=== PATIENT | male | born 1960 | race Caucasian/White ===

== ENCOUNTER 2019-08-25 10:04 | Emergency (ER) | payer OTHER ==
[2019-08-25] MEDS ORDERED: DIPH,PERTUS(ACELL)TETVAC-LF 0.5 ML VIAL IM ONE (10:06)
[2019-08-25 10:18] LABS: Glucose,Whole Blood 143 mg/dL (75-99)
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
[2019-08-25] MEDS ORDERED: HYDROmorphone 0.5 MG/0.5 ML SYRINGE IVP STA ×3 (10:24→11:24)
[2019-08-25 10:26] LABS: Basophils # (A) 0.1 k/uL (0-0.2); Basophils % (A) 1 %; Eosinophils # (A) 0.2 k/uL (0-0.7); Eosinophils % (A) 3 %; HCT 44.6 % (39.0-53.0); HGB 14.5 gm/dL (13.0-17.5); Lymphocytes # (A) 3.8 k/uL (1.0-4.8); Lymphocytes % (A) 40 %; MCH 29.5 pg (25.0-35.0); MCHC 32.6 g/dL (31.0-37.0); MCV 90.6 fL (80.0-100.0); Mean Platelet Volume 7.9; Monocytes # (A) 0.6 k/uL (0-1.0); Monocytes % (A) 7 %; Neutrophils # (A) 4.4 k/uL (1.3-7.7); Neutrophils % (A) 47 %; Platelet Count 258 k/uL (150-450); RBC 4.92 m/uL (4.30-5.90); RDW 12.7 % (11.5-15.5); WBC 9.6 k/uL (3.8-10.6)
[2019-08-25 10:36] LABS: ALT 35 U/L (4-49); AST 40 U/L (17-59); African American GFR (CKD) 81 (>60 ml/min/1.73 sqM); Albumin 4.2 g/dL (3.5-5.0); Alcohol <10 mg/dL; Alkaline Phosphatase 52 U/L (38-126); Amylase 32 U/L (30-110); Anion Gap 8 mmol/L; Blood Urea Nitrogen 29 mg/dL (9-20); Carbon Dioxide 22 mmol/L (22-30); Chloride 109 mmol/L (98-107); Glucose 143 mg/dL (74-99); Non-African American GFR(CKD) 70 (>60 ml/min/1.73 sqM); Potassium 3.7 mmol/L (3.5-5.1); Sodium 139 mmol/L (137-145); Total Bilirubin 0.7 mg/dL (0.2-1.3)
--- NOTE | 2019-08-25 10:36 | XR ---
EXAMINATION TYPE: XR chest 1V portable DATE OF EXAM: 08/25/2019 COMPARISON: NONE HISTORY: Trauma and pain TECHNIQUE: Single frontal view of the chest is obtained. FINDINGS: There is no focal air space opacity, pleural effusion, or pneumothorax seen. The cardiac silhouette size is within normal limits. The osseous structures are intact. There are overlying anu ds. IMPRESSION: No acute process.
--- NOTE | 2019-08-25 10:39 | XR ---
AP pelvis HISTORY: Trauma and pain frontal view of the pelvis on 2 images Bone mineralization, joint spaces and alignment are maintained. IMPRESSION: No fracture or dislocation.
[2019-08-25 10:42] LABS: Prothrombin Time 10.3 sec (9.0-12.0)
[2019-08-25 10:43] LABS: Partial Thromboplastin Time 20.8 sec (22.0-30.0)
[2019-08-25 10:44] VITALS: BP 144/85; PULSE 76; RESP 16; TEMP 97.9
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
[2019-08-25] MEDS ORDERED: SODIUM CHLORIDE 0.9% 1,000 ML IV ONE (10:52)
[2019-08-25 11:03] LABS: Creatine Kinase 149 U/L (55-170)
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
[2019-08-25 11:16] LABS: Creatine Kinase MB 1.1 ng/mL (0.0-2.4); Troponin I <0.012 ng/mL (0.000-0.034)
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
[2019-08-25 11:23] LABS: Appearance,Urine Clear (Clear); Bacteria,Urine Rare /hpf; Bilirubin,Urine Negative (Negative); Blood,Urine Moderate (Negative); Color,Urine Light Yellow; Glucose,Urine (UA) Negative (Negative); Ketones,Urine Negative (Negative); Leukocyte Esterase,Urine Negative (Negative); Nitrite,Urine Negative (Negative); PH, Urine 5.5 (5.0-8.0); Protein,Urine 1+ (Negative); RBC,Urine 104 /hpf (0-5); Urobilinogen,Urine <2.0 mg/dL (<2.0); WBC,Urine 5 /hpf (0-5)
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
[2019-08-25 11:36] LABS: Amphetamine Screen,Urine Not Detected (NotDetected); Barbiturate Screen,Urine Not Detected (NotDetected); Benzodiazepines Screen,Urine Not Detected (NotDetected); Cocaine Screen,Urine Not Detected (NotDetected); Methadone Screen, Urine Not Detected (NotDetected); Opiate Screen,Urine Not Detected (NotDetected); Oxycodone Screen, Urine Not Detected (NotDetected); Phencyclidine Screen,Urine Not Detected (NotDetected); Tricyclic Antidepressant,Urine Not Detected (NotDetected); Urn Cannabinoid Scrn Not Detected (NotDetected)
--- NOTE | 2019-08-25 11:47 | XR ---
Left leg HISTORY: Trauma, fracture Frontal lateral views of the left leg Correlation to left ankle same date The previously identified comminuted displaced fibular fracture is again noted. Tibial plateau fractu re is also present with depression of the lateral tibia, comminuted intra-articular appearance is pre sent. There is soft tissue swelling. IMPRESSION: Tibial plateau fractures, fibular fractures
[2019-08-25] MEDS ORDERED: ONDANSETRON 4 MG/2 ML VIAL IVP STA (11:54)
[2019-08-25] MEDS ORDERED: HYDROmorphone 0.5 MG/0.5 ML SYRINGE IM STA (11:54)
== END 2019-08-25 12:11 | disposition other institution (70) ==
LOC: EC 10:04
DX: S92.312A Displaced fracture of first metatarsal bone, left foot, initial encounter for closed fracture (principal); S92.412A Displaced fracture of proximal phalanx of left great toe, initial encounter for closed fracture; S92.422A Displaced fracture of distal phalanx of left great toe, initial encounter for closed fracture; S92.312B Displaced fracture of first metatarsal bone, left foot, initial encounter for open fracture; S82.142A Displaced bicondylar fracture of left tibia, initial encounter for closed fracture; S82.492A Other fracture of shaft of left fibula, initial encounter for closed fracture; S22.41XA Multiple fractures of ribs, right side, initial encounter for closed fracture; S30.811A Abrasion of abdominal wall, initial encounter; S00.01XA Abrasion of scalp, initial encounter; K21.9 Gastro-esophageal reflux disease without esophagitis; Z23 Encounter for immunization; Z79.899 Other long term (current) drug therapy; Z98.890 Other specified postprocedural states; V23.4XXA Motorcycle driver injured in collision with car, pick-up truck or van in traffic accident, initial encounter; Y92.410 Unspecified street and highway as the place of occurrence of the external cause; Y93.55 Activity, bike riding
CPT/HCPCS: 36415; 93005; 86900; 86901; 80053; 82150; 82550; 82553; 83605; 83690; 84484; 85025; 85610; 85730; 86850; 81001; 80306; 80320; 72170; 73590; 73600; 73620; 71045; 72125; 70450; 71260; 74177; 90715; 99291; 96365; 90471; 96375 ×2; 96376; 96372; J2405; J0690; J1170; Q9967

== ENCOUNTER → 2019-12-23 | Outpatient (CLI) | payer OTHER ==
--- NOTE | 2019-12-23 12:00 | CT ---
EXAMINATION TYPE: CT knee LT wo con DATE OF EXAM: 12/23/2019 COMPARISON: Plain film 08/25/2019 HISTORY: Fracture of tibia or fibula CT DLP: 410 mGycm Automated exposure control for dose reduction was used. Helical imaging through the left knee. Perez l and sagittal reconstructions. FINDINGS: Postop changes are noted to the proximal tibia. Multiple screws are noted, there is some metallic art ifact present. Side plate is present along the proximal tibia laterally, fracture lines across the ti bial plateau are present medial and lateral to the tibial condyles, complex fracture present extendin g anterior to posterior as well as angled laterally through the proximal tibia. There is near-anatomi c alignment, some periosteal new bone formation may be present along the proximal tibia deep to the s aidan plate, there is some bone sclerosis laterally. There is no dislocation. There is a small joint effusion present about the knee. Postop changes are noted to the distal fibula. IMPRESSION: POSTOP CHANGES FOR TIBIAL PLATEAU FRACTURE DESCRIBED
== END | disposition home or self-care (01) ==
LOC: RADCTMAIN 07:04
PROVIDERS: ATTEND Orthopaedic Surgery Orthopaedic Trauma
DX: M96.672 Fracture of tibia or fibula following insertion of orthopedic implant, joint prosthesis, or bone plate, left leg (principal); Z98.890 Other specified postprocedural states

== ENCOUNTER → 2020-01-23 | Outpatient (CLI) | payer OTHER ==
[2020-01-23 09:27] LABS: Basophils # (A) 0.1 k/uL (0-0.2); Basophils % (A) 1 %; Eosinophils # (A) 0.2 k/uL (0-0.7); Eosinophils % (A) 2 %; HCT 47.2 % (39.0-53.0); Lymphocytes # (A) 2.5 k/uL (1.0-4.8); Lymphocytes % (A) 32 %; MCHC 33.8 g/dL (31.0-37.0); MCV 88.6 fL (80.0-100.0); Mean Platelet Volume 7.3; Monocytes # (A) 0.7 k/uL (0-1.0); Monocytes % (A) 9 %; Neutrophils # (A) 4.1 k/uL (1.3-7.7); Neutrophils % (A) 52 %; Platelet Count 255 k/uL (150-450); RBC 5.33 m/uL (4.30-5.90); RDW 13.7 % (11.5-15.5); WBC 7.9 k/uL (3.8-10.6)
[2020-01-23 15:35] LABS: African American GFR (CKD) 75.2 (60.0-200.0); Anion Gap 6.5 mmol/L (4.00-12.00); BUN/Creat Ratio 18.33 Ratio (12.00-20.00); Calcium 9.8 mg/dL (8.7-10.3); Carbon Dioxide 28.5 mmol/L (21.6-31.8); Non-African American GFR(CKD) 64.9 (60.0-200.0); Potassium 4.3 mmol/L (3.5-5.5)
[2020-01-23 16:16] LABS: INR 0.99 (0.90-1.11); Partial Thromboplastin Time 28.4 sec (23.5-31.0); Prothrombin Time 10.7 sec (9.9-11.9)
== END | disposition home or self-care (01) ==
LOC: LABWHC1 08:25
PROVIDERS: ATTEND Orthopaedic Surgery Orthopaedic Trauma
DX: Z01.812 Encounter for preprocedural laboratory examination (principal)
CPT/HCPCS: 36415; 80048; 85025; 85610; 85730

== ENCOUNTER 2021-02-16 17:44 | Inpatient (IN) | payer BC, OTHER ==
[2021-02-16] MEDS ORDERED: SODIUM CHLORIDE 0.9% 1,000 ML IV STA ×2 (20:34→22:40)
[2021-02-16] MEDS ORDERED: ONDANSETRON 4 MG/2 ML VIAL IVP STA (20:34)
[2021-02-16] MEDS ORDERED: SODIUM CHLORIDE 0.9% 50 ML IVPB ONE (21:00)
[2021-02-16] MEDS ORDERED: BAMLANIVIMAB (EUA) 700 MG, ETESEVIMAB (EUA) 1,400 MG in SODIUM CHLORIDE 0.9% 100 ML IVPB ONE (21:00)
[2021-02-16 21:03] LABS: Basophils # (A) 0.1 k/uL (0-0.2); Basophils % (A) 1 %; Eosinophils % (A) 0 %; HCT 49.7 % (39.0-53.0); HGB 16.4 gm/dL (13.0-17.5); Lymphocytes # (A) 1.4 k/uL (1.0-4.8); Lymphocytes % (A) 20 %; MCH 30.3 pg (25.0-35.0); MCHC 33.1 g/dL (31.0-37.0); MCV 91.6 fL (80.0-100.0); Mean Platelet Volume 7.9; Monocytes # (A) 0.6 k/uL (0-1.0); Monocytes % (A) 8 %; Neutrophils % (A) 70 %; Platelet Count 173 k/uL (150-450); RBC 5.42 m/uL (4.30-5.90); RDW 12.7 % (11.5-15.5); WBC 7.2 k/uL (3.8-10.6)
--- NOTE | 2021-02-16 21:05 | ED ---
General Adult HPI - General Source: patient Mode of arrival: ambulatory Limitations: no limitations <Margi Perez - Last Filed: 02/16/21 23:29> <Lesley Geiger - Last Filed: 02/18/21 12:21> - General Chief complaint: Upper Respiratory Infection Stated complaint: dehydration Time Seen by Provider: 02/16/21 20:25 - History of Present Illness Initial comments: This 60-year-old male presents to the emergency department with abdominal pain, vomiting, and cough 1 week. Patient states he saw his primary care provider who gave him steroids for his abdominal pain. Patient states that it did not seem to help so he went to see him today and his primary care provider sent him here due to him not being able to keep down any solids or liquids over the past week. Patient states he has not been vaccinated for COVID-19. Patient states over the last week he has vomited about 10 times, has a cough, mild headache, a nd fever. Patient denies any chest pain, increased shortness of breath, change in vision, change in bowel or bladder, dizziness. (Margi Perez) - Related Data Home Medications Medication Instructions Recorded Confirmed Omeprazole [PriLOSEC] 40 mg PO DAILY 08/25/19 02/16/21 Metoprolol Succinate [Toprol XL] 25 mg PO DAILY 02/16/21 02/16/21 Previous Rx's Medication Instructions Recorded Azithromycin [Zithromax] 500 mg PO DAILY 5 Days #5 tab 02/18/21 Cefdinir [Omnicef] 300 mg PO Q12HR 5 Days #10 capsule 02/18/21 Dexamethasone [Decadron] 4 mg PO DAILY 5 Days #5 tablet 02/18/21 Allergies Allergy/AdvReac Type Severity Reaction Status Date / Time No Known Allergies Allergy Verified 02/16/21 23:16 Review of Systems ROS Other: All systems not noted in ROS Statement are negative. <Margi Perez - Last Filed: 02/16/21 23:29> ROS Other: All systems not noted in ROS Statement are negative. <Lesley Geiger - Last Filed: 02/18/21 12:21> ROS Statement: Those systems with pertinent positive or pertinent negative responses have been documented in the HPI. Past Medical History Past Medical History: GERD/Reflux, Hypertension History of Any Multi-Drug Resistant Organisms: None Reported Past Surgical History: Orthopedic Surgery Additional Past Surgical History / Comment(s): Left ankle sx Past Anesthesia/Blood Transfusion Reactions: No Reported Reaction Past Psychological History: No Psychological Hx Reported Smoking Status: Former smoker Past Alcohol Use History: None Reported Past Drug Use History: None Reported <[email or web address] toth - Last Filed: 02/16/21 23:29> General Exam Limitations: no limitations General appearance: alert, in no apparent distress Head exam: Present: atraumatic, normocephalic, normal inspection Eye exam: Present: normal appearance, EOMI ENT exam: Present: normal exam, mucous membranes moist Neck exam: Present: normal inspection, full ROM Respiratory exam: Present: normal lung sounds bilaterally. Absent: respiratory distress, wheezes, rales, rhonchi, stridor Cardiovascular Exam: Present: regular rate, normal rhythm, normal heart sounds. Absent: systolic murmur, diastolic murmur, rubs, gallop, clicks GI/Abdominal exam: Present: soft, tenderness (Mild, diffuse tenderness in all 4 quadrants), normal bowel sounds. Absent: distended, guarding, rebound, rigid Back exam: Present: normal inspection. Absent: tenderness, CVA tenderness (R), CVA tenderness (L) Neurological exam: Present: alert, oriented X3, CN II-XII intact Psychiatric exam: Present: normal affect, normal mood Skin exam: Present: warm, dry, intact, normal color. Absent: rash <FelixanayMargi toth - Last Filed: 02/16/21 23:29> Course Vital Signs 02/16/21 02/16/21 02/17/21 18:44 21:30 00:05 Temperature 99.5 F 98.4 F Pulse Rate 114 H 107 H 98 Respiratory 18 20 20 Rate Blood Pressure 105/61 108/65 118/58 O2 Sat by Pulse 93 L 93 L 92 L Oximetry 02/17/21 02/17/21 02/17/21 03:00 04:00 06:00 Temperature Pulse Rate 97 81 87 Respiratory 22 22 20 Rate Blood Pressure 120/62 116/60 111/68 O2 Sat by Pulse 92 L 97 95 Oximetry 02/17/21 07:00 Temperature Pulse Rate 85 Respiratory 24 Rate Blood Pressure 112/74 O2 Sat by Pulse 93 L Oximetry Medical Decision Making - Lab Data Result diagrams: 02/16/21 20:55 02/16/21 20:55 <Margi Perez - Last Filed: 02/16/21 23:29> - Lab Data Result diagrams: 02/18/21 07:59 02/18/21 07:59 <Lesley Geiger - Last Filed: 02/18/21 12:21> - Medical Decision Making This 60-year-old male presents to the emergency department with nausea, vomiting, cough, fever that began last week. COVID-19 positive. Patient received BAM antibody infusion without complications. After fluids and Zofran, patient states he feels very nauseous and like he is going to vomit. Labs revealed BUN 32, creatinine 2.08 with all other labs unremarkable. Urine negative for nitrates, WBC 5. Chest x-ray impression: Bilateral infiltrates in the appropriate clinical setting. Spoke with Dr. Moy who agreed to admit patient for intractable nausea and vomiting and JOHANA. Patient agreed with plan. Case discussed with Dr. Geiger. (Margi Perez) I was available for consultation in the emergency department. The history and physical exam were done by the midlevel provider. I was consulted for this patients care. I reviewed the case with the midlevel provider and based on their presentation of the patient, I agree with the assessment, medical decision making and plan of care as documented. Chart was dictated using [employer] dictation software. Attempts were made to correct any dictation errors however some typographical errors may persist. Patient was seen during a national state of emergency due to the Covid-19 pandemic. (Lesley Geiger) - Lab Data Lab Results 02/16/21 02/16/21 02/16/21 Range/Units 18:46 20:55 20:55 WBC 7.2 (3.8-10.6) k/uL RBC 5.42 (4.30-5.90) m/uL Hgb 16.4 (13.0-17.5) gm/dL Hct 49.7 (39.0-53.0) % MCV 91.6 (80.0-100.0) fL MCH 30.3 (25.0-35.0) pg MCHC 33.1 (31.0-37.0) g/dL RDW 12.7 (11.5-15.5) % Plt Count 173 (150-450) k/uL MPV 7.9 Neutrophils % 70 % Lymphocytes % 20 % Monocytes % 8 % Eosinophils % 0 % Basophils % 1 % Neutrophils # 5.0 (1.3-7.7) k/uL Lymphocytes # 1.4 (1.0-4.8) k/uL Monocytes # 0.6 (0-1.0) k/uL Eosinophils # 0.0 (0-0.7) k/uL Basophils # 0.1 (0-0.2) k/uL D-Dimer (<0.60) mg/L FEU Sodium (137-145) mmol/L Potassium (3.5-5.1) mmol/L Chloride (98-107) mmol/L Carbon Dioxide (22-30) mmol/L Anion Gap mmol/L BUN (9-20) mg/dL Creatinine (0.66-1.25) mg/dL Est GFR (CKD-EPI)AfAm (>60 ml/min/1.73 sqM) Est GFR (CKD-EPI)NonAf (>60 ml/min/1.73 sqM) Glucose (74-99) mg/dL Calcium (8.4-10.2) mg/dL Ferritin (22.0-322.0) ng/mL Total Bilirubin (0.2-1.3) mg/dL AST (17-59) U/L ALT (4-49) U/L Alkaline Phosphatase (38-126) U/L Lactate Dehydrogenase (313-618) U/L C-Reactive Protein (<1.0) mg/dL Total Protein (6.3-8.2) g/dL Albumin (3.5-5.0) g/dL Globulin g/dL Albumin/Globulin Ratio Amylase (30-110) U/L Lipase (23-300) U/L Procalcitonin (0.02-0.09) ng/mL Urine Color Dark Yellow Urine Appearance Cloudy (Clear) Urine pH 6.0 (5.0-8.0) Ur Specific [place] 1.032 (1.001-1.035) Urine Protein 3+ H (Negative) Urine Glucose (UA) Negative (Negative) Urine Ketones Trace H (Negative) Urine Blood Moderate H (Negative) Urine Nitrite Negative (Negative) Urine Bilirubin 1+ H (Negative) Urine Urobilinogen 2.0 (<2.0) mg/dL Ur Leukocyte Esterase Negative (Negative) Urine RBC 1 (0-5) /hpf Urine WBC 5 (0-5) /hpf Ur Squamous Epith Cells 2 (0-4) /hpf Urine Bacteria Rare H (None) /hpf Hyaline Casts 64 H (0-2) /lpf Granular Casts 6 (0) /lpf Urine Mucus Many H (None) /hpf Coronavirus (PCR) Detected A (Not Detectd) 02/16/21 02/17/21 02/17/21 Range/Units 20:55 12:00 12:00 WBC (3.8-10.6) k/uL RBC (4.30-5.90) m/uL Hgb (13.0-17.5) gm/dL Hct (39.0-53.0) % MCV (80.0-100.0) fL MCH (25.0-35.0) pg MCHC (31.0-37.0) g/dL RDW (11.5-15.5) % Plt Count (150-450) k/uL MPV Neutrophils % % Lymphocytes % % Monocytes % % Eosinophils % % Basophils % % Neutrophils # (1.3-7.7) k/uL Lymphocytes # (1.0-4.8) k/uL Monocytes # (0-1.0) k/uL Eosinophils # (0-0.7) k/uL Basophils # (0-0.2) k/uL D-Dimer 0.44 (<0.60) mg/L FEU Sodium 138 134 L (137-145) mmol/L Potassium 4.5 4.4 (3.5-5.1) mmol/L Chloride 102 103 (98-107) mmol/L Carbon Dioxide 24 25 (22-30) mmol/L Anion Gap 12 6 mmol/L BUN 32 H 22 H (9-20) mg/dL Creatinine 2.08 H 1.32 H (0.66-1.25) mg/dL Est GFR (CKD-EPI)AfAm 38 67 (>60 ml/min/1.73 sqM) Est GFR (CKD-EPI)NonAf 33 58 (>60 ml/min/1.73 sqM) Glucose 124 H 100 H (74-99) mg/dL Calcium 8.7 7.8 L (8.4-10.2) mg/dL Ferritin 1053.0 H (22.0-322.0) ng/mL Total Bilirubin 0.9 0.8 (0.2-1.3) mg/dL AST 36 40 (17-59) U/L ALT 34 27 (4-49) U/L Alkaline Phosphatase 53 43 (38-126) U/L Lactate Dehydrogenase 859 H (313-618) U/L C-Reactive Protein 4.3 H (<1.0) mg/dL Total Protein 7.3 6.3 (6.3-8.2) g/dL Albumin 4.0 3.3 L (3.5-5.0) g/dL Globulin 3.0 g/dL Albumin/Globulin Ratio 1.1 Amylase 43 (30-110) U/L Lipase 76 (23-300) U/L Procalcitonin (0.02-0.09) ng/mL Urine Color Urine Appearance (Clear) Urine pH (5.0-8.0) Ur Specific [place] (1.001-1.035) Urine Protein (Negative) Urine Glucose (UA) (Negative) Urine Ketones (Negative) Urine Blood (Negative) Urine Nitrite (Negative) Urine Bilirubin (Negative) Urine Urobilinogen (<2.0) mg/dL Ur Leukocyte Esterase (Negative) Urine RBC (0-5) /hpf Urine WBC (0-5) /hpf Ur Squamous Epith Cells (0-4) /hpf Urine Bacteria (None) /hpf Hyaline Casts (0-2) /lpf Granular Casts (0) /lpf Urine Mucus (None) /hpf Coronavirus (PCR) (Not Detectd) 02/17/21 Range/Units 12:00 WBC (3.8-10.6) k/uL RBC (4.30-5.90) m/uL Hgb (13.0-17.5) gm/dL Hct (39.0-53.0) % MCV (80.0-100.0) fL MCH (25.0-35.0) pg MCHC (31.0-37.0) g/dL RDW (11.5-15.5) % Plt Count (150-450) k/uL MPV Neutrophils % % Lymphocytes % % Monocytes % % Eosinophils % % Basophils % % Neutrophils # (1.3-7.7) k/uL Lymphocytes # (1.0-4.8) k/uL Monocytes # (0-1.0) k/uL Eosinophils # (0-0.7) k/uL Basophils # (0-0.2) k/uL D-Dimer (<0.60) mg/L FEU Sodium (137-145) mmol/L Potassium (3.5-5.1) mmol/L Chloride (98-107) mmol/L Carbon Dioxide (22-30) mmol/L Anion Gap mmol/L BUN (9-20) mg/dL Creatinine (0.66-1.25) mg/dL Est GFR (CKD-EPI)AfAm (>60 ml/min/1.73 sqM) Est GFR (CKD-EPI)NonAf (>60 ml/min/1.73 sqM) Glucose (74-99) mg/dL Calcium (8.4-10.2) mg/dL Ferritin (22.0-322.0) ng/mL Total Bilirubin (0.2-1.3) mg/dL AST (17-59) U/L ALT (4-49) U/L Alkaline Phosphatase (38-126) U/L Lactate Dehydrogenase (313-618) U/L C-Reactive Protein (<1.0) mg/dL Total Protein (6.3-8.2) g/dL Albumin (3.5-5.0) g/dL Globulin g/dL Albumin/Globulin Ratio Amylase (30-110) U/L Lipase (23-300) U/L Procalcitonin 0.18 H (0.02-0.09) ng/mL Urine Color Urine Appearance (Clear) Urine pH (5.0-8.0) Ur Specific [place] (1.001-1.035) Urine Protein (Negative) Urine Glucose (UA) (Negative) Urine Ketones (Negative) Urine Blood (Negative) Urine Nitrite (Negative) Urine Bilirubin (Negative) Urine Urobilinogen (<2.0) mg/dL Ur Leukocyte Esterase (Negative) Urine RBC (0-5) /hpf Urine WBC (0-5) /hpf Ur Squamous Epith Cells (0-4) /hpf Urine Bacteria (None) /hpf Hyaline Casts (0-2) /lpf Granular Casts (0) /lpf Urine Mucus (None) /hpf Coronavirus (PCR) (Not Detectd) Disposition Is patient prescribed a controlled substance at d/c from ED?: No Decision Time: 23:34 <Margi Perez - Last Filed: 02/16/21 23:29> <Lesley Geiger - Last Filed: 02/18/21 12:21> Clinical Impression: Pneumonia due to COVID-19 virus, COVID-19, Intractable nausea and vomiting, Acute kidney injury Disposition: ADMITTED IP TO THIS HOSP Condition: Good
[2021-02-16 21:09] LABS: Calcium 8.7 mg/dL (8.4-10.2); Potassium 4.5 mmol/L (3.5-5.1); Total Bilirubin 0.9 mg/dL (0.2-1.3); Total Protein 7.3 g/dL (6.3-8.2)
[2021-02-16 21:12] LABS: Appearance,Urine Cloudy (Clear); Bacteria,Urine Rare /hpf; Bilirubin,Urine 1+ (Negative); Blood,Urine Moderate (Negative); Color,Urine Dark Yellow; Glucose,Urine (UA) Negative (Negative); Granular Casts,Urine 6 /lpf (0); Hyaline Casts,Urine 64 /lpf (0-2); Ketones,Urine Trace (Negative); Leukocyte Esterase,Urine Negative (Negative); Mucus,Urine Many /hpf; Nitrite,Urine Negative (Negative); Protein,Urine 3+ (Negative); RBC,Urine 1 /hpf (0-5); Specific Gravity,Urine 1.032 (1.001-1.035); Squamous Epithelial Cell,Urine 2 /hpf (0-4); WBC,Urine 5 /hpf (0-5)
--- NOTE | 2021-02-16 22:23 | XR ---
EXAMINATION TYPE: XR chest 2V DATE OF EXAM: 02/16/2021 COMPARISON: NONE HISTORY: Cough TECHNIQUE: Frontal and lateral views of the chest are obtained. FINDINGS: There is mild to moderate perihilar and bibasilar patchy opacities. No pleural effusion, o r pneumothorax seen. The cardiac silhouette size is within normal limits. The osseous structures a re intact. IMPRESSION: Bilateral infiltrates in the appropriate clinical setting.
[2021-02-16] MEDS ORDERED: METOCLOPRAMIDE 5 MG/ML 2 ML VIAL IVP STA (22:30)
[2021-02-16] MEDS ORDERED: PROCHLORPERAZINE INJ 10 MG/2 ML VIAL IVP STA (22:40)
[2021-02-16] MEDS ORDERED: PROCHLORPERAZINE 5 MG TAB PO PRN (23:26)
[2021-02-16] MEDS ORDERED: NALOXONE 0.4 MG/ML 1 ML VIAL IV PRN (23:26)
[2021-02-17] MEDS: SODIUM CHLORIDE 0.9% 1,000 ML IV SCH ×2 (00:09→11:16)
--- NOTE | 2021-02-17 06:20 | P.HPIM ---
History of Present Illness H&P Date: 02/16/21 Chief Complaint: Vomiting 60-year-old male with hypertension and GERD Patient comes in with one-week history of coughing and abdominal discomfort with vomiting patient was diagnosed with Covid he saw his PCP who gave him some steroids, and antibiotics however patient didn't improve much continues to vomit multiple times per day decreased by mouth intake he started feeling weak and tired and decided come to the hospital for evaluation. He denies any shortness of breath or chest pain currently denies any diarrhea he denies any fevers but does have chills he denies any nasal congestion and runny nose or sore throat Patient is on vaccination against Covid In the ED he was found to have acute kidney injury with dehydration, Covid positive. Patient is also was given monoclonal antibody in the ED however at time of my evaluation his oxygen was low around 90% but seems to have improved later on room air to 93% Review of Systems Pertinent positives as noted in HPI. All other systems were reviewed and are negative Past Medical History Past Medical History: GERD/Reflux, Hypertension History of Any Multi-Drug Resistant Organisms: None Reported Past Surgical History: Orthopedic Surgery Additional Past Surgical History / Comment(s): Left ankle sx Past Anesthesia/Blood Transfusion Reactions: No Reported Reaction Past Psychological History: No Psychological Hx Reported Smoking Status: Former smoker Past Alcohol Use History: None Reported Past Drug Use History: None Reported - Past Family History Family Family Medical History: No Reported History Medications and Allergies Home Medications Medication Instructions Recorded Confirmed Type Omeprazole [PriLOSEC] 40 mg PO DAILY 08/25/19 02/16/21 History Metoprolol Succinate [Toprol XL] 25 mg PO DAILY 02/16/21 02/16/21 History Allergies Allergy/AdvReac Type Severity Reaction Status Date / Time No Known Allergies Allergy Verified 02/16/21 23:16 Physical Exam Vitals: Vital Signs Temp Pulse Resp BP Pulse Ox 02/16/21 21:30 107 H 20 108/65 93 L 02/16/21 18:44 99.5 F 114 H 18 105/61 93 L Intake and Output 02/16/21 02/16/21 02/17/21 14:59 22:59 06:59 Other: Weight 117.934 kg Constitutional: No acute distress, conversant, pleasant Eyes: Anicteric sclerae, moist conjunctiva, Pupils equal round reactive to light ENMT: NC/AT Oropharynx clear, no erythema, or exudates Neck: Supple, no masses, or JVD No carotid bruits No thyromegaly Lungs: Clear to auscultation Clear to percussion Normal respiratory effort, no accessory muscle use Cardiovascular: Heart regular in rate and rhythm, No murmurs, gallops, or rubs No peripheral edema Abdominal: Soft Nontender, no guarding, rebound or rigidity Abdomen moving with respiration Normoactive bowel sounds No hepatomegaly, No splenomegaly No palpable mass No abdominal wall hernia noted Skin: Normal temperature, tone, texture, turgor No induration No subcutaneous nodules No rash, lesions No ulcers Extremities: No digital cyanosis No clubbing Pedal pulses intact and symmetrical Radial pulses intact and symmetrical No calf tenderness Psychiatric: Alert and oriented to person, place and time Appropriate affect fair judgement Neuro Muscles Strength 5/5 in all 4 extremities Sensation to light touch grossly present throughout Cranial nerves II-XII grossly intact No focal sensory deficits Lymphatics: no palpable cervical or supraclavicular , or inguinal lymph nodes Results CBC & Chem 7: 02/16/21 20:55 02/16/21 20:55 Labs: Abnormal Lab Results - Last 24 Hours (Table) 02/16/21 02/16/21 02/16/21 Range/Units 18:46 20:55 20:55 BUN 32 H (9-20) mg/dL Creatinine 2.08 H (0.66-1.25) mg/dL Glucose 124 H (74-99) mg/dL Urine Protein 3+ H (Negative) Urine Ketones Trace H (Negative) Urine Blood Moderate H (Negative) Urine Bilirubin 1+ H (Negative) Urine Bacteria Rare H (None) /hpf Hyaline Casts 64 H (0-2) /lpf Urine Mucus Many H (None) /hpf Coronavirus (PCR) Detected A (Not Detectd) Assessment and Plan Assessment: Acute gastroenteritis with underlying Covid Covid pneumonia Acute kidney injury and dehydration Repeat vomiting and decreased by mouth intake Plan Supportive care Patient received monoclonal antibody Supplemental oxygen as needed currently patient on room air satting lower 90s percent IV fluid hydration Symptomatic control Zofran for vomiting pPI for GERD Lovenox for DVT prophylaxis Check ferritin, d-dimer, LDH, CRP, Propulsid 20 for prognostic value Follow-up blood work in the morning renal function Contact and droplet precautions Hypertension resume home meds metoprolol Patient is full code Anticipated length of stay more than 2 midnights Anticipated discharge home
[2021-02-17] MEDS ORDERED: DEXAMETHASONE SOD PHOSPHATE 10 MG/ML 1 ML VIAL IVP SCH (09:00)
[2021-02-17] MEDS: PANTOPRAZOLE 40 MG TABLET PO SCH (10:42)
[2021-02-17] MEDS: ENOXAPARIN 40 MG/0.4 ML SYRINGE SQ SCH (10:42)
[2021-02-17] MEDS: METOPROLOL SUCCINATE (ER) 25 MG TAB.ER.24H PO SCH (10:45)
[2021-02-17 13:03] LABS: ALT 27 U/L (4-49); AST 40 U/L (17-59); African American GFR (CKD) 67 (>60 ml/min/1.73 sqM); Albumin 3.3 g/dL (3.5-5.0); Albumin/Globulin Ratio 1.1; Alkaline Phosphatase 43 U/L (38-126); Anion Gap 6 mmol/L; Blood Urea Nitrogen 22 mg/dL (9-20); C Reactive Protein 4.3 mg/dL (<1.0); Calcium 7.8 mg/dL (8.4-10.2); Carbon Dioxide 25 mmol/L (22-30); Chloride 103 mmol/L (98-107); Glucose 100 mg/dL (74-99); LDH 859 U/L (313-618); Non-African American GFR(CKD) 58 (>60 ml/min/1.73 sqM); Potassium 4.4 mmol/L (3.5-5.1); Sodium 134 mmol/L (137-145); Total Bilirubin 0.8 mg/dL (0.2-1.3); Total Protein 6.3 g/dL (6.3-8.2)
--- NOTE | 2021-02-17 13:24 | P.PN ---
Subjective Progress Note Date: 02/17/21 Principal diagnosis: Patient is short of breath we will continue we'll start the patient on IV antibiotics Acute gastroenteritis with underlying Covid Covid pneumonia Acute kidney injury and dehydration Repeat vomiting and decreased by mouth intake Plan Supportive care Patient received monoclonal antibody Supplemental oxygen as needed currently patient on room air satting lower 90s percent IV fluid hydration Symptomatic control Zofran for vomiting pPI for GERD Lovenox for DVT prophylaxis Check ferritin, d-dimer, LDH, CRP, Propulsid 20 for prognostic value Follow-up blood work in the morning renal function Contact and droplet precautions Hypertension resume home meds metoprolol Constitutional: No acute distress, conversant, pleasant Eyes: Anicteric sclerae, moist conjunctiva, no lid-lag PERRLA ENMT: NC/AT Oropharynx clear, no erythema, exudates Neck: Supple, FROM, no masses, or JVD No carotid bruits No thyromegaly Lungs: crackly Normal respiratory effort, no accessory muscle use Cardiovascular: Heart regular in rate and rhythm, No murmurs, gallops, or rubs No peripheral edema Abdominal: Soft Nontender, no guarding, rebound or rigidity Abdomen moving with respiration Normoactive bowel sounds No hepatomegaly, No splenomegaly No palpable mass No abdominal wall hernia noted Skin: Normal temperature, tone, texture, turgor No induration No subcutaneous nodules No rash, lesions No ulcers Extremities: No digital cyanosis No clubbing Pedal pulses intact and symmetrical Radial pulses intact and symmetrical Normal gait and station No calf tenderness Psychiatric:Alert and oriented to person, place and time Appropriate affect Intact judgement Neuro: Muscles Strength 5/5 in all 4 extremities Sensation to light touch grossly present throughout Cranial nerves II-XII grossly intact No focal sensory deficits Objective - Vital Signs Vital signs: Vital Signs Temp 98.4 F 02/17/21 07:15 Pulse 98 02/17/21 10:31 Resp 18 02/17/21 10:31 BP 106/63 02/17/21 10:31 Pulse Ox 93 L 02/17/21 10:31 Intake & Output 02/16/21 02/17/21 02/17/21 18:59 06:59 18:59 Intake Total 400 Balance 400 Weight 117.934 kg 117.934 kg Intake: Oral 400 - Labs CBC & Chem 7: 02/16/21 20:55 02/17/21 12:00 Labs: Abnormal Lab Results - Last 24 Hours (Table) 02/16/21 02/16/21 02/16/21 Range/Units 18:46 20:55 20:55 Sodium (137-145) mmol/L BUN 32 H (9-20) mg/dL Creatinine 2.08 H (0.66-1.25) mg/dL Glucose 124 H (74-99) mg/dL Calcium (8.4-10.2) mg/dL Lactate Dehydrogenase (313-618) U/L C-Reactive Protein (<1.0) mg/dL Albumin (3.5-5.0) g/dL Urine Protein 3+ H (Negative) Urine Ketones Trace H (Negative) Urine Blood Moderate H (Negative) Urine Bilirubin 1+ H (Negative) Urine Bacteria Rare H (None) /hpf Hyaline Casts 64 H (0-2) /lpf Urine Mucus Many H (None) /hpf Coronavirus (PCR) Detected A (Not Detectd) 02/17/21 Range/Units 12:00 Sodium 134 L (137-145) mmol/L BUN 22 H (9-20) mg/dL Creatinine 1.32 H (0.66-1.25) mg/dL Glucose 100 H (74-99) mg/dL Calcium 7.8 L (8.4-10.2) mg/dL Lactate Dehydrogenase 859 H (313-618) U/L C-Reactive Protein 4.3 H (<1.0) mg/dL Albumin 3.3 L (3.5-5.0) g/dL Urine Protein (Negative) Urine Ketones (Negative) Urine Blood (Negative) Urine Bilirubin (Negative) Urine Bacteria (None) /hpf Hyaline Casts (0-2) /lpf Urine Mucus (None) /hpf Coronavirus (PCR) (Not Detectd)
[2021-02-17] MEDS ORDERED: SODIUM CHLORIDE 0.9% 1,000 ML IV SCH (13:30)
[2021-02-17] MEDS: DEXAMETHASONE SOD PHOSPHATE 10 MG/ML 1 ML VIAL IVP SCH (15:40)
[2021-02-17] MEDS: AZITHROMYCIN 500 MG in SODIUM CHLORIDE 0.9% 250 ML IVPB SCH ×2 (16:55→18:13)
[2021-02-18 08:11] VITALS: BP 113/67; RESP 16; TEMP 97.8
--- NOTE | 2021-02-18 09:07 | P.DS ---
Providers Date of admission: 02/17/21 12:16 Attending physician: Srikanth Moy MD Primary care physician: Jermaine Peterson MD Hospital Course: 60-year-old male admitted to the hospital with dehydration and COVID- 19 infection the patient was short of breath yesterday but today feels much better patient has been started on empiric IV antibiotics for suspected pneumonia and started on IV hydration due to dehydration During the hospital stay the patient remained stable Constitutional: No acute distress, conversant, pleasant Eyes: Anicteric sclerae, moist conjunctiva, no lid-lag PERRLA ENMT: NC/AT Oropharynx clear, no erythema, exudates Neck: Supple, FROM, no masses, or JVD No carotid bruits No thyromegaly Lungs: Clear to auscultation Clear to percussion Normal respiratory effort, no accessory muscle use Cardiovascular: Heart regular in rate and rhythm, No murmurs, gallops, or rubs No peripheral edema Abdominal: Soft Nontender, no guarding, rebound or rigidity Abdomen moving with respiration Normoactive bowel sounds No hepatomegaly, No splenomegaly No palpable mass No abdominal wall hernia noted Skin: Normal temperature, tone, texture, turgor No induration No subcutaneous nodules No rash, lesions No ulcers Extremities: No digital cyanosis No clubbing Pedal pulses intact and symmetrical Radial pulses intact and symmetrical Normal gait and station No calf tenderness Psychiatric:Alert and oriented to person, place and time Appropriate affect Intact judgement Neuro: Muscles Strength 5/5 in all 4 extremities Sensation to light touch grossly present throughout Cranial nerves II-XII grossly intact No focal sensory deficits Discharge plan COVID-19 pneumonia clinically improved continue by mouth antibiotics and steroids Diarrhea and dehydration resolved Hypertension Patient follow-up with primary care physician Patient Condition at Discharge: Good Plan - Discharge Summary Discharge Rx Participant: No New Discharge Prescriptions: New Cefdinir [Omnicef] 300 mg PO Q12HR 5 Days #10 capsule Dexamethasone [Decadron] 4 mg PO DAILY 5 Days #5 tablet Azithromycin [Zithromax] 500 mg PO DAILY 5 Days #5 tab Continue Omeprazole [PriLOSEC] 40 mg PO DAILY Metoprolol Succinate [Toprol XL] 25 mg PO DAILY Discharge Medication List Omeprazole [PriLOSEC] 40 mg PO DAILY 08/25/19 [History] Metoprolol Succinate [Toprol XL] 25 mg PO DAILY 02/16/21 [History] Azithromycin [Zithromax] 500 mg PO DAILY 5 Days #5 tab 02/18/21 [Rx] Cefdinir [Omnicef] 300 mg PO Q12HR 5 Days #10 capsule 02/18/21 [Rx] Dexamethasone [Decadron] 4 mg PO DAILY 5 Days #5 tablet 02/18/21 [Rx] Follow up Appointment(s)/Referral(s): Jermaine Peterson MD [Primary Care Provider] - 1-2 days Discharge Disposition: HOME SELF-CARE
[2021-02-18] MEDS: DEXAMETHASONE SOD PHOSPHATE 10 MG/ML 1 ML VIAL IVP SCH (09:18)
[2021-02-18] MEDS: METOPROLOL SUCCINATE (ER) 25 MG TAB.ER.24H PO SCH (09:19)
[2021-02-18] MEDS: PANTOPRAZOLE 40 MG TABLET PO SCH (09:20)
[2021-02-18] MEDS: ENOXAPARIN 40 MG/0.4 ML SYRINGE SQ SCH (09:23)
[2021-02-18 09:24] VITALS: PULSE 68
[2021-02-18] MEDS: AZITHROMYCIN 500 MG in SODIUM CHLORIDE 0.9% 250 ML IVPB SCH (10:22)
[2021-02-18 10:39] LABS: Basophils # (A) 0 X 10*3/uL (0.00-0.10); Basophils % (A) 0 %; Eosinophils # (A) 0 X 10*3/uL (0.04-0.35); Eosinophils % (A) 0 %; HCT 43.5 % (39.6-50.0); HGB 14.1 g/dL (13.0-17.0); Lymphocytes # (A) 0.82 X 10*3/uL (0.90-5.00); Lymphocytes % (A) 26.1 %; MCH 29.9 pg (27.0-32.0); MCHC 32.4 g/dL (32.0-37.0); MCV 92.2 fL (80.0-97.0); Mean Platelet Volume 10.1 fL (9.5-12.2); Monocytes # (A) 0.31 X 10*3/uL (0.20-1.00); Monocytes % (A) 9.9 %; Neutrophils % (A) 63.7 %; Platelet Count 182 X 10*3/uL (140-440); RBC 4.72 X 10*6/uL (4.40-5.60); RDW 12.8 % (11.5-14.5); WBC 3.14 X 10*3/uL (4.50-10.00)
[2021-02-18 10:52] LABS: African American GFR (CKD) 81.2 (60.0-200.0); Albumin 3.6 g/dL (3.8-4.9); Albumin/Globulin Ratio 1.31 (1.60-3.17); Anion Gap 10.3 mmol/L (10.00-18.00); BUN/Creat Ratio 17.59 Ratio (12.00-20.00); Blood Urea Nitrogen 19.7 mg/dL (9.0-27.0); Calcium 8.1 mg/dL (8.7-10.3); Carbon Dioxide 23.3 mmol/L (20.0-27.5); Globulin 2.7 g/dL (1.6-3.3); Potassium 4.5 mmol/L (3.5-5.5); Total Bilirubin 0.4 mg/dL (0.30-1.20); Total Protein 6.3 g/dL (6.2-8.2)
== END 2021-02-18 11:55 | disposition home or self-care (01) | DRG 177 ==
LOC: EC 17:44 → 6NMEDSUR 23:44 → OBSVTOIN 02-17 12:16
PROVIDERS: ADMIT Internal Medicine; ATTEND Internal Medicine
PROC: 8E0ZXY6 Isolation (ICD-10-PCS; principal; 2021-02-17)
DX: U07.1 COVID-19 (principal); J12.82 Pneumonia due to coronavirus disease 2019; N17.9 Acute kidney failure, unspecified; K52.9 Noninfective gastroenteritis and colitis, unspecified; E86.0 Dehydration; I10 Essential (primary) hypertension; K21.9 Gastro-esophageal reflux disease without esophagitis; Z79.899 Other long term (current) drug therapy; Z87.891 Personal history of nicotine dependence
CPT/HCPCS: 36415; 71046; 80053; 81001; 82150; 82728; 83615; 83690; 84145; 85025; 85379; 86140; 87040; 87324; 87635; 96361; 96374; 96375; 99285

== ENCOUNTER → 2021-09-08 | Outpatient (CLI) | payer OTHER ==
--- NOTE | 2021-09-08 10:03 | XR ---
EXAMINATION TYPE: XR shoulder complete LT DATE OF EXAM: 09/08/2021 9:30 AM INDICATION: Patient age:Male; 61 years old; Reason for study: M25.512 left shoulder pain; COMPARISON: Chest radiograph 02/16/2021 TECHNIQUE: The left shoulder was examined in AP, internally rotated and scapular Y projections. . FINDINGS: No evidence of acute osseous pathology, joint dislocation, or soft tissue swelling. The remaining por tions of the visualized chest are unremarkable. IMPRESSION: No acute osseous pathology.
== END | disposition home or self-care (01) ==
LOC: RADXRMAIN 09:11
PROVIDERS: ATTEND Physical Medicine & Rehabilitation
DX: M25.512 Pain in left shoulder (principal)

== ENCOUNTER 2022-10-05 23:50 | Emergency (ER) | payer BC ==
[2022-10-06 00:14] VITALS: RESP 18; TEMP 97.9
[2022-10-06] MEDS ORDERED: ONDANSETRON 4 MG/2 ML VIAL IVP STA (00:31)
[2022-10-06] MEDS ORDERED: KETOROLAC 15 MG/ML 1 ML VIAL IVP STA (00:31)
[2022-10-06] MEDS ORDERED: TAMSULOSIN 0.4 MG CAP.ER.24H PO STA (00:33)
--- NOTE | 2022-10-06 01:22 | ED ---
Abdominal Pain HPI - General Chief Complaint: Abdominal Pain Stated Complaint: Abd pain Time Seen by Provider: 10/06/22 00:27 Source: patient Mode of arrival: ambulatory Limitations: no limitations - History of Present Illness Initial Comments: 62-year-old male presenting with chief complaint of left-sided flank pain. Patient was seen at [facility] on 09/29 and was diagnosed with a left- sided 5 mm kidney stone in the proximal ureter. Patient has an appointment with urology later on today, however he was having severe pain as well as nausea and vomiting at home tonight. No dysuria or hematuria. No fevers or chills. States that the flank pain does radiate into the groin. - Related Data Home Medications Medication Instructions Recorded Confirmed Omeprazole [PriLOSEC] 40 mg PO DAILY 08/25/19 02/16/21 Metoprolol Succinate [Toprol XL] 25 mg PO DAILY 02/16/21 02/16/21 Previous Rx's Medication Instructions Recorded Azithromycin [Zithromax] 500 mg PO DAILY 5 Days #5 tab 02/18/21 Cefdinir [Omnicef] 300 mg PO Q12HR 5 Days #10 capsule 02/18/21 dexAMETHasone [Decadron] 4 mg PO DAILY 5 Days #5 tablet 02/18/21 Ondansetron Odt [Zofran Odt] 4 mg PO Q8HR PRN #20 tab 10/06/22 traMADol HCl [Ultram] 50 mg PO Q6HR PRN 3 Days #12 tab 10/06/22 Allergies Allergy/AdvReac Type Severity Reaction Status Date / Time No Known Allergies Allergy Verified 10/06/22 00:14 Review of Systems ROS Statement: Those systems with pertinent positive or pertinent negative responses have been documented in the HPI. ROS Other: All systems not noted in ROS Statement are negative. Past Medical History Past Medical History: GERD/Reflux, Hypertension History of Any Multi-Drug Resistant Organisms: None Reported Past Surgical History: Orthopedic Surgery Additional Past Surgical History / Comment(s): Left ankle sx Past Anesthesia/Blood Transfusion Reactions: No Reported Reaction Past Psychological History: No Psychological Hx Reported Smoking Status: Former smoker Past Alcohol Use History: None Reported Past Drug Use History: None Reported - Past Family History Father Family Medical History: Congestive Heart Failure (CHF) Mother Additional Family Medical History / Comment(s): stroke Family Family Medical History: No Reported History General Exam Limitations: no limitations General appearance: alert, in no apparent distress Head exam: Present: atraumatic, normocephalic, normal inspection Eye exam: Present: normal appearance, EOMI Neck exam: Present: normal inspection, full ROM Respiratory exam: Present: normal lung sounds bilaterally. Absent: respiratory distress, wheezes, rales, rhonchi, stridor Cardiovascular Exam: Present: regular rate, normal rhythm, normal heart sounds. Absent: systolic murmur, diastolic murmur, rubs, gallop, clicks Back exam: Absent: CVA tenderness (R), CVA tenderness (L) Neurological exam: Present: alert, oriented X3, CN II-XII intact Psychiatric exam: Present: normal affect, normal mood Skin exam: Present: warm, dry, intact, normal color. Absent: rash Course Vital Signs 10/06/22 10/06/22 10/06/22 00:12 03:22 04:22 Temperature 97.9 F Pulse Rate 72 65 69 Respiratory 18 18 18 Rate Blood Pressure 169/86 119/64 136/78 O2 Sat by Pulse 97 95 95 Oximetry Medical Decision Making - Medical Decision Making Was pt. sent in by a medical professional or institution (, PA, TELECOMMUNICATIONS ANALYST, urgent care, hospital, or [place] health care facility...) When possible be specific @ -No Did you speak to anyone other than the patient for history (EMS, parent, family, police, friend...)? What history was obtained from this source @ -No Did you review nursing and triage notes (agree or disagree)? Why? @ -I reviewed and agree with nursing and triage notes Were old charts reviewed (outside hosp., previous admission, EMS record, old EKG, old radiological studies, urgent care reports/EKG's, [place] health care facility records)? Report findings @ -CT obtained [facility] is reviewed which showed 5 mm stone in the proximal ureter Differential Diagnosis (chest pain, altered mental status, abdominal pain women, abdominal pain men, vaginal bleeding, weakness, fever, dyspnea, syncope, headache, dizziness, GI bleed, back pain, seizure, CVA, palpatations, mental health, musculoskeletal)? @ - MDM Differential Back Pain: Strain, zoster, cauda equina syndrome, epidural abscess, vertebral osteomyelitis, discitis, fracture, subluxation, disc herniation, DJD, spinal stenosis, dissection, AAA, pancreatitis, peptic ulcer disease, pyelonephritis, kidney stone this is not meant to be an all-inclusive list. EKG interpreted by me (3pts min.). @ -As above X-rays interpreted by me (1pt min.). @ -None done CT interpreted by me (1pt min.). @ -None done U/S interpreted by me (1pt. min.). @ -None done What testing was considered but not performed or refused? (CT, X-rays, U/S, labs)? Why? @ -None What meds were considered but not given or refused? Why? @ -None Did you discuss the management of the patient with other professionals (professionals i.e. DrJamarcus, PA, TELECOMMUNICATIONS ANALYST, lab, RT, psych nurse, social work administrator, commercial accountant, teacher, chief scientific officer, catalytic case operator)? Give summary @ -No Was smoking cessation discussed for >3mins.? @ -No Was critical care preformed (if so, how long)? @ -No Were there social determinants of health that impacted care today? How? (Homelessness, low income, unemployed, alcoholism, drug addiction, transportation, low edu. Level, literacy, decrease access to med. care, nursing home, rehab)? @ -No Was there de-escalation of care discussed even if they declined (Discuss DNR or withdrawal of care, Hospice)? DNR status @ -No What co-morbidities impacted this encounter? (DM, HTN, Smoking, COPD, CAD, Cancer, CVA, ARF, Chemo, Hep., AIDS, mental health diagnosis, sleep apnea, morbid obesity)? @ -None Was patient admitted / discharged? Hospital course, mention meds given and route, prescriptions, significant lab abnormalities, going to OR and other pertinent info. @ -62-year-old male presenting with chief complaint of left-sided flank pain. Patient has known kidney stone that was diagnosed at [facility], states that he has an appointment with Dr. Helm later today. He is currently on hydrocodone and ciprofloxacin prescribed to him by his PCP Dr. Huffman. He was unable to manage the pain tonight. Physical exam is conducted. No leukocytosis or anemia. Creatinine 2.22 and BUN 23, likely from obstruction. Urine shows no infectious process. Patient would like to be discharged home. Considering that the patient has close follow-up and an appointment later on today a believe this is reasonable. His pain is well-controlled at this time. Instructed to follow closely with urology. Follow-up with PCP. Report back to ER with any new or worsening symptoms. Discussed return parameters and answered all questions. Patient conveyed verbal understanding and agreed to the plan. I discussed this case in detail with my attending Dr. Freitas Undiagnosed new problem with uncertain prognosis? @ -No Drug Therapy requiring intensive monitoring for toxicity (Heparin, Nitro, Insulin, Cardizem)? @ -No Were any procedures done? @ -No Diagnosis/symptom? @ -kidney stone Acute, or Chronic, or Acute on Chronic? @ -Acute Uncomplicated (without systemic symptoms) or Complicated (systemic symptoms)? @ -Uncomplicated Side effects of treatment? @ -No Exacerbation, Progression, or Severe Exacerbation? @ -No Poses a threat to life or bodily function? How? (Chest pain, USA, MT, pneumonia, PE, COPD, DKA, ARF, appy, cholecystitis, CVA, Diverticulitis, Homicidal, Suicidal, threat to staff... and all critical care pts) @ -No - Lab Data Result diagrams: 10/06/22 00:54 10/06/22 00:54 Lab Results 10/06/22 10/06/22 10/06/22 Range/Units 00:54 00:54 03:21 WBC 10.1 (3.8-10.6) k/uL RBC 4.31 (4.30-5.90) m/uL Hgb 13.2 (13.0-17.5) gm/dL Hct 39.3 (39.0-53.0) % MCV 91.2 (80.0-100.0) fL MCH 30.7 (25.0-35.0) pg MCHC 33.7 (31.0-37.0) g/dL RDW 12.6 (11.5-15.5) % Plt Count 235 (150-450) k/uL MPV 8.8 Neutrophils % 69 % Lymphocytes % 17 % Monocytes % 9 % Eosinophils % 4 % Basophils % 0 % Neutrophils # 7.0 (1.3-7.7) k/uL Lymphocytes # 1.7 (1.0-4.8) k/uL Monocytes # 0.9 (0-1.0) k/uL Eosinophils # 0.4 (0-0.7) k/uL Basophils # 0.0 (0-0.2) k/uL Sodium 138 (137-145) mmol/L Potassium 4.6 (3.5-5.1) mmol/L Chloride 105 (98-107) mmol/L Carbon Dioxide 25 (22-30) mmol/L Anion Gap 8 mmol/L BUN 23 H (9-20) mg/dL Creatinine 2.22 H (0.66-1.25) mg/dL Est GFR (CKD-EPI)AfAm 35 (>60 ml/min/1.73 sqM) Est GFR (CKD-EPI)NonAf 30 (>60 ml/min/1.73 sqM) Glucose 120 H (74-99) mg/dL Calcium 8.7 (8.4-10.2) mg/dL Total Bilirubin 0.5 (0.2-1.3) mg/dL AST 21 (17-59) U/L ALT 19 (4-49) U/L Alkaline Phosphatase 58 (38-126) U/L Total Protein 7.3 (6.3-8.2) g/dL Albumin 3.9 (3.5-5.0) g/dL Urine Color Light Yellow Urine Appearance Clear (Clear) Urine pH 5.5 (5.0-8.0) Ur Specific Clements 1.017 (1.001-1.035) Urine Protein 1+ H (Negative) Urine Glucose (UA) Negative (Negative) Urine Ketones Negative (Negative) Urine Blood Trace H (Negative) Urine Nitrite Negative (Negative) Urine Bilirubin Negative (Negative) Urine Urobilinogen <2.0 (<2.0) mg/dL Ur Leukocyte Esterase Negative (Negative) Urine RBC 2 (0-5) /hpf Urine WBC 4 (0-5) /hpf Urine Mucus Rare H (None) /hpf Disposition Clinical Impression: Kidney stone Disposition: HOME SELF-CARE Condition: Good Instructions (If sedation given, give patient instructions): Kidney Stones (ED) Additional Instructions: Follow-up with urologist at scheduled appointment today. Report back to ER with any new or worsening symptoms. Prescriptions: traMADol HCl [Ultram] 50 mg PO Q6HR PRN 3 Days #12 tab PRN Reason: Pain Ondansetron Odt [Zofran Odt] 4 mg PO Q8HR PRN #20 tab PRN Reason: Nausea Is patient prescribed a controlled substance at d/c from ED?: No Referrals: Jay Huffman MD [Primary Care Provider] - 1-2 days Jamar Helm MD [STAFF PHYSICIAN] - 10/06/22 Time of Disposition: 04:18
[2022-10-06 01:59] LABS: Basophils % (A) 0 %; Eosinophils # (A) 0.4 k/uL (0-0.7); Eosinophils % (A) 4 %; HCT 39.3 % (39.0-53.0); HGB 13.2 gm/dL (13.0-17.5); Lymphocytes # (A) 1.7 k/uL (1.0-4.8); Lymphocytes % (A) 17 %; MCH 30.7 pg (25.0-35.0); MCHC 33.7 g/dL (31.0-37.0); MCV 91.2 fL (80.0-100.0); Mean Platelet Volume 8.8; Monocytes # (A) 0.9 k/uL (0-1.0); Monocytes % (A) 9 %; Neutrophils % (A) 69 %; Platelet Count 235 k/uL (150-450); RBC 4.31 m/uL (4.30-5.90); RDW 12.6 % (11.5-15.5); WBC 10.1 k/uL (3.8-10.6)
[2022-10-06 02:08] LABS: ALT 19 U/L (4-49); AST 21 U/L (17-59); African American GFR (CKD) 35 (>60 ml/min/1.73 sqM); Albumin 3.9 g/dL (3.5-5.0); Alkaline Phosphatase 58 U/L (38-126); Anion Gap 8 mmol/L; Blood Urea Nitrogen 23 mg/dL (9-20); Calcium 8.7 mg/dL (8.4-10.2); Carbon Dioxide 25 mmol/L (22-30); Chloride 105 mmol/L (98-107); Glucose 120 mg/dL (74-99); Non-African American GFR(CKD) 30 (>60 ml/min/1.73 sqM); Potassium 4.6 mmol/L (3.5-5.1); Sodium 138 mmol/L (137-145); Total Bilirubin 0.5 mg/dL (0.2-1.3); Total Protein 7.3 g/dL (6.3-8.2)
[2022-10-06] MEDS ORDERED: MORPHINE SULFATE 4 MG/ML SYRINGE IVP STA (02:26)
[2022-10-06] MEDS ORDERED: SODIUM CHLORIDE 0.9% 1,000 ML IV ONE (02:29)
[2022-10-06 03:36] LABS: Appearance,Urine Clear (Clear); Bilirubin,Urine Negative (Negative); Blood,Urine Trace (Negative); Color,Urine Light Yellow; Glucose,Urine (UA) Negative (Negative); Ketones,Urine Negative (Negative); Leukocyte Esterase,Urine Negative (Negative); Mucus,Urine Rare /hpf; Nitrite,Urine Negative (Negative); PH, Urine 5.5 (5.0-8.0); Protein,Urine 1+ (Negative); RBC,Urine 2 /hpf (0-5); Specific Gravity,Urine 1.017 (1.001-1.035); Urobilinogen,Urine <2.0 mg/dL (<2.0); WBC,Urine 4 /hpf (0-5)
[2022-10-06] MEDS ORDERED: ONDANSETRON 4 MG ODT STARTER PACK 2 TAB BTL PO STA (04:18)
[2022-10-06] MEDS ORDERED: traMADol 50 MG STARTER PACK 3 TAB BTL PO STA (04:18)
[2022-10-06 04:27] VITALS: BP 136/78; PULSE 69
== END 2022-10-06 04:30 | disposition home or self-care (01) ==
LOC: EC 23:50
DX: N20.2 Calculus of kidney with calculus of ureter (principal); I10 Essential (primary) hypertension; K21.9 Gastro-esophageal reflux disease without esophagitis; Z87.891 Personal history of nicotine dependence; Z79.899 Other long term (current) drug therapy
CPT/HCPCS: 36415; 80053; 85025; 81001; 99284; 96374; 96375 ×2; 96361; J2270; J2405; J1885; S0119

== ENCOUNTER 2022-10-10 12:25 | Day surgery (SDC) | payer BC ==
--- NOTE | 2022-10-10 07:49 | P.GSHP ---
History of Present Illness H&P Date: 10/10/22 Chief Complaint: Left renal colic The patient is a 62-year-old white male with a history of kidney stones. For the past 3 weeks, he has experienced abdominal and left flank pain. CT scan shows moderate left hydronephrosis due to a 5 mm left proximal ureteral calculus. He also reports constipation. - Constitutional Constitutional: Denies chills, Denies fever - Gastrointestinal Gastrointestinal: Reports constipation, Reports nausea, Reports vomiting - Genitourinary (Male) Genitourinary: Reports flank pain, Reports kidney stones, Denies dysuria, Denies hematuria Past Medical History Past Medical History: GERD/Reflux, Hypertension History of Any Multi-Drug Resistant Organisms: None Reported Past Surgical History: Orthopedic Surgery Additional Past Surgical History / Comment(s): Left ankle sx Past Anesthesia/Blood Transfusion Reactions: No Reported Reaction Past Psychological History: No Psychological Hx Reported Smoking Status: Former smoker Past Alcohol Use History: None Reported Past Drug Use History: None Reported - Past Family History Father Family Medical History: Congestive Heart Failure (CHF) Mother Additional Family Medical History / Comment(s): stroke Family Family Medical History: No Reported History Medications and Allergies Home Medications Medication Instructions Recorded Confirmed Type Omeprazole [PriLOSEC] 40 mg PO DAILY 08/25/19 02/16/21 History Metoprolol Succinate [Toprol XL] 25 mg PO DAILY 02/16/21 02/16/21 History Azithromycin [Zithromax] 500 mg PO DAILY 5 Days #5 tab 02/18/21 Rx Cefdinir [Omnicef] 300 mg PO Q12HR 5 Days #10 capsule 02/18/21 Rx dexAMETHasone [Decadron] 4 mg PO DAILY 5 Days #5 tablet 02/18/21 Rx Ondansetron Odt [Zofran Odt] 4 mg PO Q8HR PRN #20 tab 10/06/22 Rx traMADol HCl [Ultram] 50 mg PO Q6HR PRN 3 Days #12 tab 10/06/22 Rx Allergies Allergy/AdvReac Type Severity Reaction Status Date / Time No Known Allergies Allergy Verified 10/06/22 00:14 Surgical - Exam - General well developed, well nourished, no distress - Neck no masses, trachea midline - Respiratory normal respiratory effort - Abdomen Abdomen: soft, non tender, no guarding, no rigid, no rebound - Genitourinary normal penis with no external lesions, testicles non-tender - Psychiatric oriented to time, oriented to person, oriented to place, speech is normal, memory intact Results - Imaging CT scan - abdomen: report reviewed Assessment and Plan (1) Calculus of ureter Status: Acute Code(s): N20.1 - CALCULUS OF URETER SNOMED Code(s): 48748884 Plan: I had a lengthy discussion with the patient and his regarding his left proximal ureteral calculus. He was advised that the likelihood of spontaneous passage is approximately 40%. Management options include medical expulsion therapy, extracorporal shockwave lithotripsy (ESWL), and ureteroscopy with laser lithotripsy and possible stone basketing. The pros, cons, and risks of each approach were reviewed, and the patient has elected to undergo cystoscopy, left ureteroscopy with laser lithotripsy and possible stone basketing, left ureteral stent insertion. He is aware of potential risks, which include anesthesia, infection, ureteral injury, and inability to successfully remove the calculus. He also understands the possible need for secondary procedure.
[~2022-10-10 12:25] MED LIST: ceFAZolin 3 GM in SODIUM CHLORIDE 0.9% 100 ML IVPB PRN
--- NOTE | 2022-10-10 12:43 | XR ---
EXAMINATION TYPE: XR KUB DATE OF EXAM: 10/10/2022 Comparison: None Clinical History: 62-year-old male preop left-sided kidney stone Findings: Nonobstructive bowel gas pattern. No significant stool burden. Questionable calcification measuring 7 mm left paramedian mid abdomen at the L4 level. Impression: Questionable 7 mm calcification along the left paramedian mid abdomen at the L4 level. Unable to excl ude a ureteral stone here.
[2022-10-10] MEDS ORDERED: LACTATED RINGERS 1,000 ML IV ONE (13:04)
[2022-10-10] MEDS ORDERED: ONDANSETRON 4 MG/2 ML VIAL ONE (13:05)
[2022-10-10] MEDS ORDERED: DEXAMETHASONE SOD PHOSPHATE 4 MG/ML 1 ML VIAL IVP ONE (13:09)
[2022-10-10 13:11] LABS: Glucose,Whole Blood 106 mg/dL (70-110)
[2022-10-10] MEDS ORDERED: LIDOCAINE 2% INJ 20 MG/ML (2 ML VIAL) ONE (14:16)
[2022-10-10] MEDS ORDERED: MIDAZOLAM 2 MG/2 ML VIAL ONE (14:16)
[2022-10-10] MEDS ORDERED: GLYCOPYRROLATE 0.2 MG/ML 2 ML VIAL ONE (14:16)
[2022-10-10] MEDS ORDERED: PROPOFOL 10 MG/ML 20 ML VIAL IV ONE (14:16)
[2022-10-10] MEDS ORDERED: SUCCINYLCHOLINE CHLORIDE 200 MG/10 ML VIAL IV ONE (14:16)
[2022-10-10] MEDS ORDERED: fentaNYL (PF) 50 MCG/ML 2 ML AMP ONE (14:16)
[2022-10-10] MEDS ORDERED: ROCURONIUM 10 MG/ML (5 ML VIAL) IV ONE (14:16)
[2022-10-10] MEDS ORDERED: NEOSTIGMINE 1 MG/ML 10 ML VIAL ONE (14:16)
[2022-10-10 15:46] VITALS: TEMP 97.3
--- NOTE | 2022-10-10 16:00 | FL ---
Intraoperative/procedural fluoroscopic services were provided. Total fluoroscopy time is 30.9 seconds with a total of 1 submitted images to PACS. Please see the operative/procedural note for further det ails. DAP: 12.160 Gycm2
[2022-10-10] MEDS ORDERED: HYDROmorphone 0.5 MG/0.5 ML SYRINGE IVP ONE (16:05)
--- NOTE | 2022-10-10 16:06 | P.OP ---
Date of Procedure: 10/10/22 Preoperative Diagnosis: Left ureteral calculus Postoperative Diagnosis: Same Procedure(s) Performed: Cystoscopy, left ureteroscopy with Holmium laser lithotripsy and stone basketing, left ureteral stent insertion Anesthesia: JESSIE Surgeon: Jamar Helm Estimated Blood Loss (ml): 5 IV fluids (ml): 600 Pathology: other (Left ureteral calculus fragments, sent for chemical analysis) Condition: stable Disposition: PACU Indications for Procedure: The patient is a 62-year-old white male with a history of kidney stones. For the past 3 weeks, he has experienced abdominal and left flank pain. CT scan shows moderate left hydronephrosis due to a 5 mm left proximal ureteral calculus. He also reports constipation. Operative Findings: Left proximal ureteral calculus, fragmented and removed completely. Description of Procedure: The patient was taken to the operating room and placed in the dorsolithotomy position, with legs supported in Mani stirrups. The external genitalia was prepped and draped sterilely. The 30 lens was used to introduce the 21-Kenyan Gonzalez cystoscopic sheath through the urethra and into the bladder under direct vision. The prostatic urethra showed evidence of mild lateral lobe enlargement. The bladder was examined in its entirety. Both ureteral orifices were normal anatomic location and configuration. No tumors or foreign bodies were seen. A 0.038 inch Glidewire was passed through the cystoscope. The left ureteral orifice was cannulated, and the Glidewire was advanced beyond the left proximal ureteral calculus and up to the renal pelvis. A significant amount of urine drained alongside the wire, consistent with draining hydronephrosis. The cystoscope was removed, and an 11/13-Kenyan ureteral access catheter was passed over the wire, up to the mid ureter. The flexible ureteroscope was then passed through the ureteral access catheter sheath, up to the stone. The calculus became dislodged and refluxed into an upper pole calyx. After locating the calculus, the 272 micron Holmium laser probe was passed through the ureteroscope, and lithotripsy was performed. The calculus was very dense, likely composed of calcium oxalate monohydrate. After fragmenting the calculus, all calculus fragments were removed using a 1.9-Kenyan 0 tip basket. No additional calculi were seen. The ureteroscope was removed. Pullout ureteroscopy showed no evidence of ureteral trauma. The Glidewire was passed through the ureteral access catheter sheath, which was removed. The Glidewire was then backloaded into the cystoscope, which was passed into the bladder. A 26 cm, 4.8-Kenyan double-J ureteral stent was placed over the wire. Proper stent positioning was verified fluoroscopically and endoscopically. The bladder was emptied and the cystoscope removed. The patient tolerated the procedure well and was taken to the recovery room in stable condition. PK ROCKS Report: Procedure Acuity: Urgent Stone Size and Location: 5 mm, left proximal ureter Ureteral Dilation: No Ureteral Access Sheath Used: Yes Stone Sent for Analysis: Yes All Stones/Fragments Were Removed with a Basket: Yes Complications: No Preoperative Antibiotics Given: Yes Stent Placed: Yes If Stent Placed, Was String Left Attached: Yes If Stent Placed, When is it to be Removed: 1 week Discharge Medications: Tamsulosin, Toradol
[2022-10-10 16:41] VITALS: PULSE 71
[2022-10-10] MEDS ORDERED: KETOROLAC 15 MG/ML 1 ML VIAL ONE (16:51)
[2022-10-10 16:53] VITALS: BP 140/75; RESP 15
[2022-10-10] MEDS ORDERED: KETOROLAC 15 MG/ML 1 ML VIAL IVP ONE (16:56)
== END 2022-10-10 17:10 | disposition home or self-care (01) ==
LOC: OR 12:25
PROVIDERS: ATTEND Urology
DX: N20.1 Calculus of ureter (principal); I10 Essential (primary) hypertension; K21.9 Gastro-esophageal reflux disease without esophagitis; Z98.890 Other specified postprocedural states; Z87.442 Personal history of urinary calculi; Z87.891 Personal history of nicotine dependence; Z82.49 Family history of ischemic heart disease and other diseases of the circulatory system; Z82.3 Family history of stroke; Z79.899 Other long term (current) drug therapy; Z79.52 Long term (current) use of systemic steroids
CPT/HCPCS: 74018; 52356; C2625; C1769; C1758; J2250; J0330; J1100; J2710; J0690; J2405; J3010; J1885; J2704; J1170; J2001

== ENCOUNTER → 2022-11-30 | Outpatient (CLI) | payer OTHER ==
--- NOTE | 2022-11-30 10:50 | XR ---
EXAMINATION TYPE: XR ankle complete LT, XR foot complete LT DATE OF EXAM: 11/30/2022 9:48 AM CLINICAL INDICATION:Male, 62 years old with history of progress study L ankle; [facility] COMPARISON: 08/25/2019 TECHNIQUE: XR ankle complete LT, XR foot complete LT; foot and ankle is imaged in frontal, lateral a nd oblique projections. FINDINGS: Postsurgical change the fibula with hardware in place. Hardware is intact. Post surgical ch anges to the first metatarsal which appears intact. Calcaneal plantar spurring. Is no evidence of fra cture. There is multifocal joint space narrowing and osteophyte formation. Remote injury to the metat arsals is also suggested involving fourth and fifth. IMPRESSION: 1. Post surgical changes with hardware intact. 2. No evidence of acute fracture. 3. Multifocal moderate osteoarthrosis changes. 4. Calcaneal plantar spurring.
== END | disposition home or self-care (01) ==
LOC: RADXRMAIN 09:21
PROVIDERS: ATTEND Physical Medicine & Rehabilitation
DX: M77.32 Calcaneal spur, left foot (principal); M19.072 Primary osteoarthritis, left ankle and foot; Z96.698 Presence of other orthopedic joint implants

== ENCOUNTER → 2023-02-26 | Outpatient (CLI) | payer BC ==
--- NOTE | 2023-02-26 13:58 | XR ---
EXAMINATION TYPE: XR cervical spine w flex/ext DATE OF EXAM: 02/26/2023 COMPARISON: NONE HISTORY: 62-year-old male M47.812, cervical spondylosis, bilateral hand numbness. TECHNIQUE: 8 views FINDINGS: Moderate disc/endplate degenerative changes as well as hypertrophic facet and uncovertebral joint art hropathy is present throughout especially mid to lower cervical spine. No predental space widening or prevertebral soft tissue swelling. Reversal of the normal cervical lordosis but otherwise of preserv ed alignment. On the right, moderate bony neuroforaminal narrowing C5-C6 and mild at C4-C5 and C6-C7. On the left, moderate bony neuroforaminal narrowing C3-C4, C4-C5, and C5-C6. Mild C6-C7. There appears to be a grade 1 retrolisthesis that develops at C4-C5 upon extension. No malalignment o n flexion. Normal odontoid view. IMPRESSION: 1. Moderate spondylotic change mid to lower cervical spine. Variable bony neural foraminal narrowing as outlined above. 2. Reversal of the normal cervical lordosis could be positional or due to muscle spasm. 3. No malalignment on neutral. There is the development of a grade 1 retrolisthesis at C4-C5 upon ext ension.
== END | disposition home or self-care (01) ==
LOC: RADXRMAIN 08:30
PROVIDERS: ATTEND Internal Medicine
DX: M47.812 Spondylosis without myelopathy or radiculopathy, cervical region (principal); M43.12 Spondylolisthesis, cervical region
CPT/HCPCS: 72052